=== PATIENT | female | born 1985 | race Caucasian/White ===

== ENCOUNTER 2022-06-30 00:57 | Emergency (ER) | payer OTHER ==
[2022-06-30 01:16] VITALS: RESP 18; BMI 34.4
[2022-06-30] MEDS ORDERED: KETOROLAC TROMETHAMINE 15 MG/ML VIAL IM ONE (02:01)
[2022-06-30 02:13] VITALS: BP 119/81; PULSE 83; TEMP 99.2
[2022-06-30] MEDS ORDERED: KETOROLAC TROMETHAMINE 15 MG/ML VIAL ONE (02:15)
== END 2022-06-30 05:33 | disposition home or self-care (01) ==
LOC: JER 00:57
DX: M25.561 Pain in right knee (principal)
CPT/HCPCS: 73560-TC-RT-FY; 99281-25